=== PATIENT | male | born 1975 | race Two or more races ===

== ENCOUNTER 2019-09-29 05:49 | Inpatient (IN) | payer SELFPAY ==
[~2019-09-29] VITALS: Ht 167.6 cm; Wt 83.9 kg
[2019-09-29] MEDS ORDERED: SODIUM CHLORIDE 0.9% 1,000 ML IV ONE ×2 (06:55→16:45)
[2019-09-29] MEDS ORDERED: SODIUM CHLORIDE 0.9% 500 ML IVB ONE (06:55)
[2019-09-29] MEDS ORDERED: METOCLOPRAMIDE HCL 5MG/ml INJ 2ml VIAL IV ONE (07:00)
[2019-09-29] MEDS ORDERED: KETOROLAC TROMETH 15 mg/ml 1ML VL IV ONE (07:00)
[2019-09-29 07:06] LABS: Calcium 9.9 mg/dL (8.5-10.1); Eosinophils # (auto) 0 10 ^3/uL (0-0.8); Eosinophils % (auto) 0.1 % (0.0-7.0); Hemoglobin 17.7 g/dL (13.5-17.5); Neutrophils # (auto) 10.8 10 ^3/uL (1.6-8.6); Platelet Count (auto) 191 10^3/uL (140-450); Potassium 3.8 mmol/L (3.5-5.1); White Blood Cell 11.8 10^3/uL (4.4-10.8)
[2019-09-29 07:10] LABS: Basophils # (auto) 0.1 10 ^3/uL (0-0.2); Basophils % (auto) 0.5 % (0.0-2.0); Hematocrit 51.2 % (41.0-53.0); Lymphocytes # (auto) 0.6 10 ^3/uL (0.4-5.4); Mean Corpuscular Hemoglobin 30.8 pg (28.0-32.0); Mean Corpuscular Hgb Conc. 34.5 g/dL (32.0-36.0); Mean Corpuscular Volume 89.3 fL (80.0-100.0); Monocytes # (auto) 0.3 10 ^3/uL (0-1.3); Neutrophils % (auto) 91.4 % (37.0-80.0); Nucleated Red Blood Cells % 0.1 %; Red Blood Cells 5.74 10^6/uL (4.5-5.90); Red Cell Distribution Width 13.2 % (11.8-14.3)
[2019-09-29 07:12] LABS: Albumin 4.2 g/dL (3.4-5.0); BUN/Creatinine Ratio 19.6; Bilirubin, Total 0.4 mg/dL (0.2-1.0); Total Protein 8.3 g/dL (6.4-8.2)
[2019-09-29 07:40] LABS: Urine Bacteria NONE SEEN /hpf (None Seen); Urine Blood 1+ /uL (Negative); Urine Specific Gravity 1.005 (1.001-1.035); Urine WBC <1 /hpf (0 - 3)
[2019-09-29] MEDS ORDERED: GASTROGRAFIN 120 ML SOL ONE (09:01)
[2019-09-29] MEDS ORDERED: ONDANSETRON HCL 4 MG/2 ML VIAL IV ONE (12:45)
[2019-09-29] MEDS ORDERED: MORPHINE SULF INJ 2 MG/ML SYRINGE 1ML IV ONE (12:45)
[2019-09-29] MEDS ORDERED: ONDANSETRON HCL 4 MG/2 ML VIAL IV PRN (16:45)
[2019-09-29] MEDS ORDERED: MORPHINE SULF INJ 2 MG/ML SYRINGE 1ML IV PRN (16:45)
[2019-09-29] MEDS: metroNIDAZOLE 500MG/100ML 100 ML IV SCH ×2 (17:44→21:34)
--- NOTE | 2019-09-29 18:09 | NUR ---
MS admit from ER KAREY BENNETT admitted to tele/MS after SBAR received. Patient oriented to FLO BURNS RN primary RN, unit, room, bed, and unit policies regarding patient care and visiting hours. Patient weighed by bedscale and encouraged to call if they need something. All questions and concerns addressed, patient verbalized understanding.
--- NOTE | 2019-09-29 18:35 | NUR ---
PAGED FORGING PRESS SETTER UP ROSA RE: PT REQUEST TO TAKE NG TUBE OUT. PT STATES " I HAVE HAD 4 BOWEL MOVEMENTS IN THE PAST HOUR, THAT STUFF THEY GAVE ME FOR THE TEST MADE ME GO". MD STATES "PT NEEDS TO HAVE THE NG TUBE, HE HAS A POSSIBLE SBO. IF HE WANTS TO TAKE IT OUT HE NEEDS TO SIGN A PROCEDURE AMA." PT UPDATED ON POC
--- NOTE | 2019-09-29 19:00 | NUR ---
Opening Shift Note Assumed care of patient, awake and alert. No S/S of distress/SOB or pain. Instructed on POC and to call for assist PRN, will continue to monitor for changes Q1hr and PRN.
--- NOTE | 2019-09-29 19:48 | NUR ---
NGT removal NGT removed with AMA signed. MD Meier notified. following explaination and instruction to patient. Patient verbalized understanding prior to removal. Patient tolerated well.
[2019-09-29 20:01] VITALS: BP 124/82
--- NOTE | 2019-09-29 20:15 | NUR ---
Dr. Goff at bedside: Marcelina Castellanos at bedside for surgical consult. Per Dr. Goff, patient is cleared by his stand point and doesn't need any surgical intervention at this time. Patient has had 6 bowel movements already prior to Dr. Goff arrival and no longer experiencing any abdominal pain. RN received orders to advance patient's diet as tolerated. RN will continue to monitor and assess patient.
[2019-09-29] MEDS: FAMOTIDINE (10MG/ML) 2ML VL IV SCH (21:34)
--- NOTE | 2019-09-29 21:34 | NUR ---
Patient refused all scheduled 2200 medications. Patient states he is healthy and now feels fine and does not require any medications at this time, including his IV fluids. RN will continue to monitor and assess patient.
[2019-09-29] MEDS: METOCLOPRAMIDE HCL 5MG/ml INJ 2ml VIAL IV SCH (21:35)
[2019-09-29 22:00] VITALS: BP 124/84
[2019-09-30] MEDS: SODIUM CHLORIDE 0.9% 1,000 ML IV SCH ×2 (01:45→09:48)
[2019-09-30 02:00] VITALS: BP 132/67
[2019-09-30 05:22] LABS: Basophils # (auto) 0.1 10 ^3/uL (0-0.2); Basophils % (auto) 0.5 % (0.0-2.0); Eosinophils # (auto) 0.1 10 ^3/uL (0-0.8); Eosinophils % (auto) 0.7 % (0.0-7.0); Hemoglobin 16.3 g/dL (13.5-17.5); Lymphocytes # (auto) 1.6 10 ^3/uL (0.4-5.4); Lymphocytes % (auto) 12.9 % (10.0-50.0); Mean Corpuscular Hemoglobin 30.7 pg (28.0-32.0); Mean Corpuscular Hgb Conc. 34.1 g/dL (32.0-36.0); Mean Corpuscular Volume 90.2 fL (80.0-100.0); Monocytes # (auto) 1.1 10 ^3/uL (0-1.3); Monocytes % (auto) 8.4 % (0.0-12.0); Neutrophils # (auto) 9.9 10 ^3/uL (1.6-8.6); Neutrophils % (auto) 77.5 % (37.0-80.0); Platelet Count (auto) 158 10^3/uL (140-450); Red Blood Cells 5.32 10^6/uL (4.5-5.90); Red Cell Distribution Width 13.7 % (11.8-14.3); White Blood Cell 12.7 10^3/uL (4.4-10.8)
[2019-09-30 05:39] LABS: INR 1.01 (0.9-1.15); Partial Thromboplastin Time 24.2 sec (23.64-32.05)
[2019-09-30 05:47] LABS: Albumin 3.5 g/dL (3.4-5.0); Potassium 3.8 mmol/L (3.5-5.1)
[2019-09-30 05:50] LABS: BUN/Creatinine Ratio 20.6; Bilirubin, Total 0.6 mg/dL (0.2-1.0)
[2019-09-30] MEDS: metroNIDAZOLE 500MG/100ML 100 ML IV SCH ×2 (06:00→14:00)
[2019-09-30] MEDS: METOCLOPRAMIDE HCL 5MG/ml INJ 2ml VIAL IV SCH ×2 (06:00→14:00)
--- NOTE | 2019-09-30 06:00 | NUR ---
Patient refused all scheduled 0600 medications.
--- NOTE | 2019-09-30 07:45 | NUR ---
Morning note patient resting in bed with even and unlabored respirations, no distress noted. Instructed patient on POC, fall precautions and to call for assistance as needed. patient verbalized understanding. Fall precautions in place with bed in lowest locked position and call light within reach.
[2019-09-30 09:00] VITALS: BP 115/70
[2019-09-30] MEDS: levoFLOXacin 500MG 100 ML IV SCH ×3 (09:48→10:00)
[2019-09-30] MEDS: FAMOTIDINE (10MG/ML) 2ML VL IV SCH (09:49)
--- NOTE | 2019-09-30 09:50 | NUR ---
Patient refused scheduled medication Patient stated "I don't need it. I don't have any heartburn. I'll take the antibiotic but I don't want the heartburn medication." Medication non-administered.
--- NOTE | 2019-09-30 09:51 | NUR ---
RE: Levaquin IV This RN documented under missed dose of medication from previous shift. Medication administration charting corrected to reflect correct administration of scheduled IV medication.
--- NOTE | 2019-09-30 11:13 | NUR ---
Alyse for discharge per Dr. Ludwin Goff.
[2019-09-30 13:00] VITALS: BP 141/78
[2019-09-30] MEDS ORDERED: ONDA-144 PO (14:11)
--- NOTE | 2019-09-30 14:31 | NUR ---
Patient refused medication Patient stated "I'm discharged so I don't want it. I don't have any insurance and don't want to rack up a big bill." Scheduled IV medications non-administered.
--- NOTE | 2019-09-30 15:47 | NUR ---
Discharged Discharge education and paperwork provided to the patient per MD order. Patient verbalized understanding. Patient informed of facilities to receive follow up care at due to no insurance/no PCP. Patient verbalized understanding. Patient stated "I'm getting this new job with an [employer] in the next couple of months and should be getting pretty good insurance." IV removed with clean technique, catheter intact. Dressing applied. Patient tolerated well, no trauma to site. Respirations even and unlabored on room air, no distress noted. Patient refused wheelchair. Patient ambulated with a steady gait to [facility] located in the [facility]. Patient accompanied by staff member to hospital [facility]. Patient reports having all personal belongings.
== END 2019-09-30 15:50 | disposition home or self-care (01) | DRG 389 ==
LOC: ER 05:49 → OVERFLOW 05:50 → WEST WING 18:12
PROVIDERS: ADMIT Nurse Practitioner Acute Care; ATTEND Internal Medicine
DX: K56.609 Unspecified intestinal obstruction, unspecified as to partial versus complete obstruction (principal); R65.10 Systemic inflammatory response syndrome (SIRS) of non-infectious origin without acute organ dysfunction; K76.89 Other specified diseases of liver; F17.210 Nicotine dependence, cigarettes, uncomplicated; D72.829 Elevated white blood cell count, unspecified; R73.9 Hyperglycemia, unspecified
CPT/HCPCS: 36415; 71046; 74176; 74250; 80053; 81001; 82150; 83690; 83735; 85025; 85610; 85730; 93005; 96361; 96374; 96375; G0378; J1956; J2405; J3490

== ENCOUNTER 2021-04-22 03:00 | Emergency (ER) | payer MEDICAID ==
[~2021-04-22] VITALS: Ht 167.6 cm; Wt 86.2 kg
[2021-04-22 03:00] VITALS: BP 117/95
[~2021-04-22 03:00] MED LIST: ONDA-144 PO
== END 2021-04-22 05:13 | disposition left against medical advice (07) ==
LOC: ER 03:00
DX: R10.10 Upper abdominal pain, unspecified (principal); Z53.21 Procedure and treatment not carried out due to patient leaving prior to being seen by health care provider

== ENCOUNTER 2021-04-22 05:41 | Emergency (ER) | payer MEDICAID ==
[~2021-04-22] VITALS: Ht 167.6 cm; Wt 90.7 kg
[2021-04-22] MEDS ORDERED: ONDANSETRON HCL 4 MG/2 ML VIAL IV ONE (06:45)
[2021-04-22] MEDS ORDERED: SODIUM CHLORIDE 0.9% 1,000 ML IVB ONE (06:45)
[2021-04-22] MEDS ORDERED: SODIUM CHLORIDE 0.9% 1,000 ML IV ONE (06:45)
[2021-04-22] MEDS ORDERED: KETOROLAC TROMETH 30 MG/ML 1ML VIAL IV ONE (06:45)
[2021-04-22 07:25] LABS: Basophils # (auto) 0 10 ^3/uL (0-0.2); Basophils % (auto) 0.3 % (0.0-2.0); Eosinophils # (auto) 0 10 ^3/uL (0-0.8); Eosinophils % (auto) 0.3 % (0.0-7.0); Hematocrit 45.1 % (41.0-53.0); Hemoglobin 15.8 g/dL (13.5-17.5); Lymphocytes # (auto) 0.7 10 ^3/uL (0.4-5.4); Lymphocytes % (auto) 6.5 % (10.0-50.0); Mean Corpuscular Hemoglobin 31.8 pg (28.0-32.0); Mean Corpuscular Volume 90.9 fL (80.0-100.0); Monocytes # (auto) 0.5 10 ^3/uL (0-1.3); Monocytes % (auto) 4.3 % (0.0-12.0); Neutrophils # (auto) 9.5 10 ^3/uL (1.6-8.6); Neutrophils % (auto) 88.6 % (37.0-80.0); Red Blood Cells 4.96 10^6/uL (4.5-5.90); White Blood Cell 10.7 10^3/uL (4.4-10.8)
[2021-04-22 07:41] LABS: Chloride 105 mmol/L (98-107); Potassium 3.4 mmol/L (3.5-5.1); Sodium 136 mmol/L (136-145)
[2021-04-22 07:50] LABS: Alanine Aminotransferase 28 U/L (16-61); Albumin 3.4 g/dL (3.4-5.0); Alkaline Phosphatase 82 U/L (45-117); Anion Gap 6 (5-15); Aspartate Aminotransferase 24 U/L (15-37); BUN/Creatinine Ratio 13.1; Bilirubin, Total 0.5 mg/dL (0.2-1.0); Blood Urea Nitrogen 11 mg/dL (7-18); Carbon Dioxide 25 mmol/L (21-32); GFR African American 127 mL/min; GFR Non-African American 105 mL/min; Glucose 119 mg/dL (74-106); Lipase 130 U/L (73-393); Total Protein 7.4 g/dL (6.4-8.2)
[2021-04-22 09:18] LABS: Urine Bacteria FEW /hpf (None Seen); Urine Blood Negative /uL (Negative); Urine Mucus FEW (None Seen); Urine Specific Gravity 1.022 (1.001-1.035); Urine WBC 3 /hpf (0 - 3)
[2021-04-22 09:45] VITALS: BP 136/97
== END 2021-04-22 10:11 | disposition home or self-care (01) ==
LOC: ER 05:41 → EDBD 05:41 → ER 10:11
DX: N20.0 Calculus of kidney (principal); F17.210 Nicotine dependence, cigarettes, uncomplicated
CPT/HCPCS: 36415; 74176; 80053; 81001; 83690; 84484; 85025; 96361; 96374; 96375; 99284; J1885; J2405; J7030